=== PATIENT | female | born 1965 | race Two or more races ===

== ENCOUNTER 2016-10-16 19:14 | Emergency (ER) | payer SELFPAY ==
[~2016-10-16] VITALS: Ht 157.5 cm; Wt 59.0 kg
[2016-10-16] MEDS ORDERED: UNOBMED (19:25)
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
[2016-10-16] MEDS ORDERED: DiphenhydrAMINE 50mg/ml Inj IM ONE (19:45)
[2016-10-16] MEDS ORDERED: LORazepam Inj 2mg/ml 1ml IV ONE (19:45)
[2016-10-16 20:15] VITALS: BP 121/87
[2016-10-16 21:31] LABS: BASOPHILS % (AUTO) 1.6 % (0.0-2.0); LYMPHOCYTES % (AUTO) 37.1 % (20.0-45.0); MEAN CORPUSCULAR HEMOGLOBIN 31.6 PG (27.0-31.0); MEAN CORPUSCULAR HGB CONC 32.1 G/DL (32.0-36.0); MEAN CORPUSCULAR VOLUME 98 FL (80-99); MEAN PLATELET VOLUME 6.8 FL (6.5-10.1); MONOCYTES % (AUTO) 6.6 % (1.0-10.0); NEUTROPHILS % (AUTO) 53.6 % (45.0-75.0); PLATELET COUNT 232 K/UL (150-450); RED CELL DISTRIBUTION WIDTH 12.8 % (11.6-14.8); WHITE BLOOD COUNT 5.3 K/UL (4.8-10.8)
[2016-10-16 21:59] LABS: ACETAMINOPHEN < 10 ug/mL (10-30); ALANINE AMINOTRANSFERASE 12 U/L (3-33); ALBUMIN/GLOBULIN RATIO 1.5 (1.0-2.7); ALCOHOL 357 mg/dL; ANION GAP 21 (5-15); ASPARTATE AMINO TRANSFERASE 17 U/L (5-40); CALCIUM 8.7 mg/dL (8.6-10.2); CARBON DIOXIDE 21 mEQ/L (20-30); CHLORIDE 103 mEQ/L (98-107); CREATININE 0.6 mg/dL (0.5-0.9); GLOMERULAR FILTRATION RATE > 60 mL/min (>60); HEMOLYSIS 15; POTASSIUM 3.4 mEQ/L (3.4-4.9); SODIUM 145 mEQ/L (135-145); TOTAL PROTEIN 7.5 g/dL (6.6-8.7)
[2016-10-16 22:30] VITALS: BP 114/79
[2016-10-17 00:01] VITALS: BP 105/74
[2016-10-17 04:00] VITALS: BP 103/61
[2016-10-17 06:11] VITALS: BP 112/73
[2016-10-17 06:29] VITALS: BP 112/73
== END 2016-10-17 06:32 | disposition home or self-care (01) ==
LOC: EDBD 19:14 → EMR 20:00
DX: F10.129 Alcohol abuse with intoxication, unspecified (principal); Z59.0 Homelessness; Z78.1 Physical restraint status
CPT/HCPCS: 36415; 80053; 85025; 96372; 96374; 96375; 99284; G0480; J1200; 80329